=== PATIENT | female | born 1950 | race Caucasian/White ===

== ENCOUNTER 2016-04-16 06:52 | Day surgery (SDC) | payer BC ==
[~2016-04-16 06:52] MED LIST: ATROPINE SULFATE 0.4 MG/1 ML VIAL IVP PRN; HYDROmorphone 2 MG/1 ML IVP PRN; LIDOCAINE W/ SODIUM BICARB 0.5 ML SYR ONE; Lactated Ringers 1,000 ML PRIMARY IV ONE; NORMAL SALINE 10 ML SYRINGE FLUSH IVP PRN; ONDANSETRON 4 MG/2 ML VIAL IVP PRN; Ondansetron ODT Tab 8 MG TAB PO PRN; Prochlorperazine Edisylate Inj 10mg/2ml vial IVP PRN; fentaNYL Inj 100 MCG/2 ML VIAL IVP PRN
[2016-04-16] MEDS ORDERED: Lactated Ringers 1,000 ML PRIMARY IV SCH (07:00)
[2016-04-16] MEDS ORDERED: LIDOCAINE MPF 2% - 5 ML (20 MG/1 ML) ONE (07:10)
[2016-04-16] MEDS ORDERED: MIDAZOLAM 5 MG/1 ML ONE (07:10)
[2016-04-16] MEDS ORDERED: Sodium Chloride 0.9% vial 10 ML ONE (07:10)
[2016-04-16] MEDS ORDERED: fentaNYL Inj 100 MCG/2 ML VIAL ONE (07:10)
[2016-04-16 07:11] LABS: BILIRUBIN,URINE NEGATIVE (NEG); CLARITY,URINE CLEAR (CLEAR); GLUCOSE, URINE (UA) NEGATIVE (NEG); LEUKOCYTE ESTERASE ,URINE NEGATIVE (NEG); NITRATE,URINE NEGATIVE (NEG); OCCULT BLOOD,URINE NEGATIVE (NEG); PH,URINE 5.5 (5.0-8.5); PROTEIN,URINE NEGATIVE (NEG); UROBILINOGEN,URINE 0.2 mg/dL (0.2)
[2016-04-16 07:15] LABS: BACTERIA,URINE FEW; RBC,URINE 0 /hpf; SQUAMOUS EPITHELIAL CELL,UR MODERATE; URINE SAMPLE TYPE CLEAN CATCH URINE
[2016-04-16] MEDS ORDERED: DEXAMETHASONE PF 10 MG/1 ML VIAL ONE (08:20)
[2016-04-16] MEDS ORDERED: KETOROLAC 30 MG/1 ML VIAL ONE (08:20)
[2016-04-16] MEDS ORDERED: ONDANSETRON 4 MG/2 ML VIAL ONE (08:21)
[2016-04-16] MEDS ORDERED: NORMAL SALINE 10 ML SYRINGE FLUSH IVP PRN (08:28)
[2016-04-16] MEDS ORDERED: IBUPROFEN 400 MG TABLET PO PRN (08:28)
[2016-04-16] MEDS ORDERED: Lactated Ringers 1,000 ML PRIMARY IV ONE (08:29)
--- NOTE | 2016-04-16 08:36 | OB.OP.NOTE ---
Operative Report Surgeon: Christophe Performance Engineer: Wenceslao Goode MD Anesthesia Type: General Anesthesia Provider: Sarah LucioOMKAR Surgery Date: 04/16/16 Preoperative Diagnosis: PMB Postoperative Diagnosis: Same Procedure: HS D&C Estimated Blood Loss (mL): 20 Fluids: 1000 ml Complications: Uterine wall perforation Findings at Surgery: Probable posterior fundal uterine wall perforation from the sound. Scant tissue returned at curettage. No active bleeding at the conclusion of the case. Indications for the Procedure: PMB Description of Procedure: The patient was taken to the operating room and placed supine were general laryngeal mask anesthesia was administered. She was then [facility] Examination under anesthesia was unremarkable. She was prepped and draped in the normal sterile fashion and her bladder was emptied of urine with a straight catheter. A weighted speculum was placed in the vagina and the anterior lip of the cervix was grasped with a single-tooth tenaculum. Uterus was sounded to a depth of 10 cm. The cervix was then dilated with Alexandro dilators to #22. Hysteroscopy isn't performed with a 0 hysteroscope and normal saline distending medium and gravity pressure. Inspection revealed a posterior uterine perforation possibly at the fundus in the midline. However, it was difficult to ascertain exactly where the endometrial cavity was as opposed to possible errant dilation tract within the cervical substance. Sharp curettage was performed gently to a depth of 6 cm or so with return of scant tissue which was collected on Telfa and sent for pathology. Hysteroscopy was then re-performed and good hemostasis was noted. The tenaculum was removed from the cervix and hemostasis was achieved on the cervix with a [id number] 2-0 Vicryl suture 2. There were no additional complications of surgery and the patient left to recovery in good condition. Plan: Routine post op care and discharge to home.
[2016-04-16 10:17] VITALS: RESP 16; TEMP 97.6
== END 2016-04-16 09:37 | disposition home or self-care (01) ==
LOC: SDSC 06:52
PROVIDERS: ATTEND Obstetrics & Gynecology
DX: N95.0 Postmenopausal bleeding (principal)
CPT/HCPCS: 58558; 81001; A4216; J1885; J2704; J3010; J1100; J2001; J2250; J2405; J7120

== ENCOUNTER → 2016-04-27 | Outpatient (CLI) | payer BC ==
[2016-04-27 14:35] LABS: HEMATOCRIT 41.1 % (37.0-47.0); HEMOGLOBIN 13.5 g/dL (12.0-16.0); MEAN CORPUSCULAR HEMOGLOBIN 29.2 PG (27-31); MEAN CORPUSCULAR HGB CONC 32.8 g/dL (33-37); MEAN PLATELET VOLUME 11.8 FL (7.4-12.2); RDW COEFFICIENT OF VARIATION 15.9 % (11.5-14.5); RED BLOOD COUNT 4.62 10^6/uL (4.20-5.40)
[2016-04-27 14:40] LABS: ASPARTATE AMINO TRANSFERASE 19 IU/L (8-39); BILIRUBIN,TOTAL 0.7 mg/dL (0.3-1.2); BLOOD UREA NITROGEN 14 mg/dL (7-22); BUN/CREATININE RATIO 15.55 (6-20); CALCIUM 9.9 mg/dL (8.7-10.7); CHLORIDE 106 meq/L (98-112); CREATININE 0.9 mg/dL (0.50-1.20); EST GLOMERULAR FILTRATION > 60 (>60 ml/min/1.73m(2)); GLUCOSE 115 mg/dL (78-110); POTASSIUM 4.5 meq/L (3.8-5.2); SODIUM 141 meq/L (135-145); TOTAL PROTEIN 7.2 g/dL (6.1-8.0)
== END ==
LOC: EKG 10:39
PROVIDERS: ATTEND Obstetrics & Gynecology
DX: I10 Essential (primary) hypertension (principal); E78.5 Hyperlipidemia, unspecified
CPT/HCPCS: 80053; 85027

== ENCOUNTER → 2016-05-14 | Day surgery (SDC) | payer BC ==
[~2016-05-14] MED LIST changes: -ATROPINE SULFATE 0.4 MG/1 ML VIAL IVP PRN; +Acetaminophen 1000mg Inj 100 ML IV ONE; +BUPIVACAINE 0.25% W/ EPI - 10 ML VIAL ONE; +DEXAMETHASONE PF 10 MG/1 ML VIAL ONE; +DOCUSATE 100 MG CAPSULE PO SCH; +HYDROcodone-APAP 5 MG -325 MG TABLET PO PRN; +KETOROLAC 30 MG/1 ML VIAL IVP PRN; +LIDOCAINE HCL 2 % 10 ML JELLY URO-JECT TOPICAL ONE; +LIDOCAINE MPF 2% - 5 ML (20 MG/1 ML) ONE; +Lactated Ringers 1,000 ML PRIMARY IV SCH; +MIDAZOLAM 5 MG/1 ML ONE; +NITROFURANTOIN/NITROFURAN MAC 100 MG CAPSULE PO ONE; +Nalbuphine Inj 20 MG/ML Ampule IVP PRN; -ONDANSETRON 4 MG/2 ML VIAL IVP PRN; +ONDANSETRON 4 MG/2 ML VIAL ONE; +OXYMETAZOLINE 0.05% 15 ML NASAL SPRAY ONE; +Opium-Belladonna 60-16.2mg 1 EACH SUPP.RECT RECTAL ONE; +PROMETHAZINE 25 MG/1 ML VIAL IM PRN; +Phenazopyridine Tab 100 MG TAB PO ONE; -Prochlorperazine Edisylate Inj 10mg/2ml vial IVP PRN; +ROCURONIUM 10 MG/1 ML - 5 ML VIAL IVP ONE; +SCOPOLAMINE HYDROBROMIDE 1.5 MG - 1 EACH PATCH TRANSDERM ONE; +Sodium Chloride 0.9% 100 ML IV ONE; +fentaNYL Inj 250 MCG/5 ML VIAL ONE
[2016-05-14 07:48] LABS: BILIRUBIN,URINE NEGATIVE (NEG); CLARITY,URINE CLEAR (CLEAR); GLUCOSE, URINE (UA) NEGATIVE (NEG); LEUKOCYTE ESTERASE ,URINE TRACE (NEG); NITRATE,URINE NEGATIVE (NEG); OCCULT BLOOD,URINE Trace-lysed (NEG); PH,URINE 5.5 (5.0-8.5); PROTEIN,URINE NEGATIVE (NEG); UROBILINOGEN,URINE 0.2 EU/dL (0.2)
[2016-05-14 07:57] LABS: URINE SAMPLE TYPE CLEAN CATCH URINE
[2016-05-14 08:01] LABS: BACTERIA,URINE FEW; RBC,URINE 0-1 /hpf; SQUAMOUS EPITHELIAL CELL,UR FEW
--- NOTE | 2016-05-14 10:47 | OB.OP.NOTE ---
Operative Report Surgeon: Christophe University Administrator: Wenceslao Goode MD Anesthesia Type: General Anesthesia Provider: Thomas Palmer CRNA Surgery Date: 05/14/16 Preoperative Diagnosis: PMB Postoperative Diagnosis: Same Procedure: da Nancy Hysterectomy/BSO/Cystoscopy Estimated Blood Loss (mL): 15 Fluids: 3200 ml Complications: None Findings at Surgery: Normal appearing uterus and ovaries. The right fallopian tube was spotted with small, slightly yellowish implants c/w old endosalpingiosis. No visible evidence of bowel, bladder, or ureter injury. Both ureters ejected urine at cystoscopy, and the bladder dome was intact. Indications for the Procedure: PMB, unable to sample the endometrium. Description of Procedure: See dictated operative report. Plan: Routine post op care and discharge to home.
[2016-05-14 11:11] VITALS: RESP 14
[2016-05-14 15:02] VITALS: TEMP 97.2
== END | disposition home or self-care (01) ==
LOC: SDSC 07:23
PROVIDERS: ATTEND Obstetrics & Gynecology
DX: N95.0 Postmenopausal bleeding (principal)
CPT/HCPCS: 52000; 58552; 81001; J0131; J0694; J2704; J3010; J1100; J2001; J2250; J2405; J7050; J7120

== ENCOUNTER → 2016-07-01 | Outpatient (CLI) | payer BC ==
[2016-07-01 09:48] LABS: BASOPHILS % (AUTO) 1.1 % (0-1); EOSINOPHILS # (AUTO) 0.69 10*3/UL; EOSINOPHILS % (AUTO) 7.4 % (0-8); HEMATOCRIT 42.5 % (37.0-47.0); HEMOGLOBIN 14.1 g/dL (12.0-16.0); LYMPHOCYTES # (AUTO) 3.14 10*3/uL; MEAN CORPUSCULAR HEMOGLOBIN 29.4 PG (27-31); MEAN CORPUSCULAR HGB CONC 33.2 g/dL (33-37); MEAN CORPUSCULAR VOLUME 88.7 FL (81-99); MEAN PLATELET VOLUME 11.8 FL (7.4-12.2); MONOCYTES # (AUTO) 0.89 10*3/UL (0.3-0.8); MONOCYTES % (AUTO) 9.5 % (5-15); NEUTROPHILS # (AUTO) 4.54 10*3/UL; NEUTROPHILS % (AUTO) 48.4 % (50-80); RED BLOOD COUNT 4.79 10^6/uL (4.20-5.40)
[2016-07-01 09:54] LABS: PLATELET MORPHOLOGY COMMENT NORMAL MORPHOLOGY (NORM); RBC MORPHOLOGY COMMENT NORMAL MORPHOLOGY (NORM); WBC MORPHOLOGY COMMENT NORMAL MORPHOLOGY (NORM)
[2016-07-01 09:58] LABS: BLOOD UREA NITROGEN 15 mg/dL (7-22); BUN/CREATININE RATIO 18.75 (6-20); CALCIUM 9.8 mg/dL (8.7-10.7); CHOL/HDL RATIO 4.61 RATIO (0-4.0); EST GLOMERULAR FILTRATION > 60 (>60 ml/min/1.73m(2)); HDL CHOLESTEROL 47 mg/dL (40-150); SERUM ALBUMIN 4.2 g/dL (3.5-4.8); SERUM CHOLESTEROL 217 mg/dL (120-200)
--- NOTE | 2016-07-01 12:40 | DI ---
CT BONE DENSITOMETRY OF THE SPINE AND HIP, 07/01/2016 9:13 AM : Clinical History: Asymptomatic post menopausal patient. Screening. Previous Exam: 09/16/2006; 09/03/2008; 06/20/2010; and 08/12/2012. 3D Quantitative CT (QCT) Bone Mineral Densitometry: The [place] scans are normal. Low dose scans are sampled through the midbodies of L1 and L4. Average bone mineral density (BMD) is 126.8 mg/mL corresponding to a volumetric T-score of -1.6, and Z-score of 1.4. The [employer]'s (ACR) volumetric QCT BMD conversion table categorizes thi s patient as having normal mineral density of the lumbar spine. The previous studies gave bone [place] density values of 106.6, 102.0, 114.1 [address] X-Ray Absorptiometry (CTXA) Bone Mineral Densitometry of the Left Hip: Total hip BMD: 832 mg/cm2 T-score: -0.8 Z-score: 0.5 Femoral neck BMD: 714 mg/cm2 T-score: -0.7 Z-score: 0.7 READIN. The QCT lumbar spine BMD value by ACR's 3D volumetric to 2D areal conversion categorizes this pat ient as having normal bone mineral density of the lumbar spine. The QCT spine T-score is -1.6, and th is indicates there is osteopenia of the lumbar spine. 2. The CTXA total hip and femoral neck BMD T-scores are -0.8 and -0.7, respectively. The left total hip T-score indicates this patient has normal bone mineral density of the total hip.
== END ==
LOC: CT 08:37
PROVIDERS: ATTEND Internal Medicine
DX: I10 Essential (primary) hypertension (principal); E03.9 Hypothyroidism, unspecified; E78.5 Hyperlipidemia, unspecified; Z78.0 Asymptomatic menopausal state; Z90.81 Acquired absence of spleen; Z13.820 Encounter for screening for osteoporosis
CPT/HCPCS: 36415; 77078; 80053; 80061; 84443; 85025